=== PATIENT | female | born 1955 | race Caucasian/White ===

== ENCOUNTER → 2016-09-08 | Outpatient (CLI) | payer OTHER ==
--- NOTE | 2016-09-08 15:49 | US ---
Ultrasound left breast 1455 hours. History: Possible developing density upper left breast at mammography. Findings: Ultrasound of the upper left breast demonstrates a vessel that appears to correspond with t he path of the abnormality seen at mammography. There is also incidental subareolar cyst that measure s about 4 mm. No significant solid mass is evident. Impression: 1. Benign findings ultrasound left breast. BI-RADS 2 Routine annual mammographic followup recommended. The results of this study were reviewed with the patient.
== END ==
LOC: FIMAGING 14:51
PROVIDERS: ATTEND Nurse Practitioner Adult Health
DX: Z12.39 Encounter for other screening for malignant neoplasm of breast (principal); R92.8 Other abnormal and inconclusive findings on diagnostic imaging of breast

== ENCOUNTER → 2016-10-06 | Outpatient (CLI) | payer OTHER ==
--- NOTE | 2016-10-06 18:54 | DX ---
DEXA Bone Mineral Densitometry Clinical Indications: 61-year-old postmenopausal female with suspected estrogen deficiency low bone mineral density versus osteoporosis. Comparison: None. Technique: Bone Mineral Densitometry (BMD) by Dual Energy X-Ray Absorptiometry (DEXA) was performed utilizing the DeepField scanner. The lumbar spine was evaluated in the AP projection. Bilateral hips and one forearm were evaluated in the AP projection. Vertebral fracture assessment was also per formed. AP Lumbar Spine: The L1, L2, L3 and L4 vertebral bodies are evaluated. BMD: 1.028 gm/cm2 T-score: -1.3 SD Z-score: -0.1 SD AP Left Hip: BMD: 0.774 gm/cm2 T-score: -1.9 SD Z-score: -0.9 SD AP Right Hip: BMD: 0.796 gm/cm2 T-score: -1.7 SD Z-score: -0.5 SD AP Left Forearm: BMD: 0.774 gm/cm2 T-score: -1.2 SD Z-score: 0 SD Vertebral Fracture Assessment: No significant fracture deformity. Conclusion: 1. Considering the lowest measured site, the patient has low bone mineral density and is at increased risk for fracture. 2. The ten year risk for any major osteoporotic fracture is 9.5 % and for a hip fracture is 1.1 %. 3. Any bone loss in this patient is probably related to aging or estrogen deficiency. To prevent osteoporosis and to promote the patient's bone density, the following recommendations shou ld be considered: 1. Pursue a regular regimen of weightbearing and muscle strengthening exercises in order to reduce t he risk of falls and fractures (as tolerated by the patient's general medical condition). 2. Check serum hydroxy vitamin D3 level (optimal > 50 ng/ml). 3. Consider follow-up DEXA scan in two years to assess the rate of bone loss in this patient.
== END ==
LOC: FIMAGING 15:00
PROVIDERS: ATTEND Nurse Practitioner Adult Health
DX: Z13.820 Encounter for screening for osteoporosis (principal); M85.80 Other specified disorders of bone density and structure, unspecified site

== ENCOUNTER → 2017-04-03 | Outpatient (CLI) | payer OTHER ==
[~2017-04-03] MED LIST: GADOBUTROL 10 ML VIAL IVP ONE
== END ==
LOC: FIMAGING 15:44
PROVIDERS: ATTEND Psychiatry & Neurology Neurology
DX: J32.8 Other chronic sinusitis (principal)
CPT/HCPCS: A9585

== ENCOUNTER → 2018-07-08 | Outpatient (CLI) | payer OTHER | LOC: FIMAGING 14:49 | PROVIDERS: ATTEND Nurse Practitioner Adult Health | DX: Z12.31 Encounter for screening mammogram for malignant neoplasm of breast (principal) ==